=== PATIENT | female | born 1945 | race Caucasian/White ===

== ENCOUNTER 2016-09-10 06:52 | Day surgery (SDC) | payer MEDICARE, OTHER ==
[~2016-09-10] VITALS: Ht 167.6 cm; Wt 114.9 kg
[~2016-09-10 06:52] MED LIST: ACET-2930 PO; ACET-732 PO; ATEN-39 PO; CALC-969 PO; ESCI20TA30 PO; IBUP-14 PO; OMEP20TA11 PO
--- OUTSIDE RECORDS SUMMARY | 2016-09-10 06:56 | XMS REPORT | Referral Summary ---
Author Author [facility] Organization [facility] Address Unknown Phone Unavailable Care Team Providers Care Brush Material Preparer Name Role Phone Malorie Mcghee Primary Care Physician [phone] Encounter Date(s): 01/15/15 - 01/15/15 [facility] [address], [address] [place], [place] [address] Discharge Diagnosis: Obstructive sleep apnea, adult Discharge Disposition: 01-Home or Self Care Attending Physician: Shaheen Guzman MD Admitting Physician: Shaheen Guzman MD Vital Signs No data available for this section Problem List Condition Effective Dates Status Health Status Informant Morbid Active patient obesity(Confirmed) Obstructive sleep Active apnea, adult(Confirmed) Allergies, Adverse Reactions, Alerts Substance Reaction Severity Status No Known Allergies Active Medications Advil 2 mg, Oral, Daily, 0 Refill(s) Start Date: 01/09/15 Status: Ordered atenolol 50 mg oral tablet 50 mg 1 tabs, Oral, Daily, # 30 tabs, 0 Refill(s) Start Date: 01/09/15 Status: Ordered Calcium 600+D Oral, 0 Refill(s) Start Date: 01/09/15 Status: Ordered Excedrin PM 2 tabs, Oral, Bedtime (once a day), 0 Refill(s) Start Date: 01/09/15 Status: Ordered Lexapro Oral, Daily, 0 Refill(s) Start Date: 04/03/15 Status: Ordered Miscellaneous DME DME Item Tri Flex supplement, See Instructions, # 1 Each, 0 Refill(s), Supply Start Date: 01/09/15 Status: Ordered omeprazole 40 mg oral delayed release capsule See Instructions, TAKE ONE CAPSULE BY MOUTH TWICE A DAY BEFORE MEALS, # 60 caps , 11 Refill(s), eRx: [facility] #[id number], TAKE ONE CAPSULE BY MOUTH TWICE A DAY BEFORE MEALS Start Date: 03/25/14 Status: Ordered Results No data available for this section Immunizations No data available for this section Procedures No data available for this section Social History Social History Type Response Smoking Status Never smoker Assessment and Plan No data available for this section
--- OUTSIDE RECORDS SUMMARY | 2016-09-10 06:56 | XMS REPORT | Referral Summary ---
Author Author [facility] [place] Organization [facility] [place] Address Unknown Phone Unavailable Care Team Providers Care Manager Drug Name Role Phone Malorie Mcghee Primary Care Physician [phone] Encounter VC Date(s): 03/03/16 - 03/03/16 [facility] [place] [address] [place] [address]- Discharge Diagnosis: Obstructive sleep apnea, adult Discharge Disposition: 01-Home or Self Care Attending Physician: Shelli Liu Admitting Physician: Shelli Liu Vital Signs Most recent to 1 oldest [Reference Range]: Peripheral Pulse 67 bpm Rate [60-100 bpm] (03/03/16 10:49 AM) Blood Pressure 124/90 mmHg [90-140/60-90 mmHg] (03/03/16 10:49 AM) SpO2 96 % (03/03/16 10:49 AM) Problem List Condition Effective Dates Status Health [...] DAY BEFORE MEALS, # 60 caps , eRx: [facility] #[id number], TAKE ONE CAPSULE BY MOUTH TWICE A DAY BEFORE MEALS Start Date: 10/03/15 Status: Ordered Results No data available for this section Immunizations No data available for this section Procedures Procedure Date Related Diagnosis Body Site Colonoscopy1 09/06/13 Esophagogastroduodenoscopy2 09/06/13 Esophagogastroduodenoscopy3 08/13/10 Esophagogastroduodenoscopy4 08/11/09 Esophagogastroduodenoscopy5 11/16/07 1No adenomatous colon polyps, due to Hx of adenomatous polyps in past repeat c- scope in 5 years 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 Will change range to 5-14cm. RT to work with mask fit. Will turn EPR on to 3 fulltime and decrease RAMP time per her request. ORder to [facility] in [place] since she lives in [place]. Continue CPAP with all sleep at 5-14cm. -CPAP download reviewed with the patient and patient is complying with and benefitting from treatment. -Avoid driving , partaking in hazardous activities, or operating heavy machinery if drowsy. -Continue appropriate cleaning of the machine/humidifier and update of all supplies including mask , tubing , and filters . -Return for follow-up in 1 year since she lives out of town and is controlled on download, unless trouble with pressure and then call sooner . Return/call sooner if any problems arise in the meantime.
--- OUTSIDE RECORDS SUMMARY | 2016-09-10 06:56 | XMS REPORT | Referral Summary ---
Author Author [facility] Organization [facility] Address Unknown Phone Unavailable Care Team Providers Care Siding Coreboard Inspector Name Role Phone Malorie Mcghee Primary Care Physician [phone] Encounter VC Date(s): 04/03/15 - 04/03/15 [facility] [address], [facility] [address] [place], [place] [address] Discharge Diagnosis: Obstructive sleep apnea, adult Discharge Disposition: 01-Home or Self Care Attending Physician: Shaheen Guzman MD Admitting Physician: Shaheen Guzman MD Referring Physician: Temi Mcghee MD Vital Signs Most recent to 1 oldest [Reference Range]: Peripheral Pulse 81 bpm Rate [60-100 bpm] (04/03/15 10:55 AM) Blood Pressure 118/86 mmHg [90-140/60-90 mmHg] (04/03/15 10:55 AM) SpO2 93 % (04/03/15 10:55 AM) Problem List Condition Effective Dates Status [...] # 60 caps , 11 Refill(s), eRx: [facility] #[id number], TAKE ONE CAPSULE BY MOUTH TWICE A DAY BEFORE MEALS Start Date: 03/25/14 Status: Ordered Results No data available for this section Immunizations No data available for this section Procedures No data available for this section Social History Social History Type Response Smoking Status Never smoker Assessment and Plan Extracted from: Title: Office Visit Note Author: Shaheen Guzman MD Date: 04/03/15 Assessment/Plan Obstructive sleep apnea, adult Assessment: Obstructive sleep apnea syndrome. The patient is complying with treatment and benefiting. No changes in pressure or mask are needed. She has some fluid retentionin the loose soft tissues around the eyes, which could be worsened bycompression from the straps on the mask. Plan: We reviewed her compliance download. She was given a copy. She will continue at the same pressure range. I talked about pathophysiology of puffy eyes. I suggested putting her bed in slight reverse Trendelenburg to see if that willhelp. Annual returns at this point, sooner if problems. Referrals to Other Providers Referred by: Shaheen Guzman MD
--- OUTSIDE RECORDS SUMMARY | 2016-09-10 06:56 | XMS REPORT | Referral Summary ---
Author Author [facility] Organization [facility] Address Unknown Phone Unavailable Care Team Providers Care Rigging Loft Repairer Name Role Phone Malorie Mcghee Primary Care Physician [phone] Encounter VC Date(s): 01/09/15 - 01/09/15 [facility] [address], [facility] [address] [place], [place] [address] Discharge Diagnosis: Obstructive sleep apnea, adult Discharge Disposition: 01-Home or Self Care Attending Physician: Shaheen Guzman MD Admitting Physician: Shaheen Guzman MD Referring Physician: Temi Mcghee MD Vital Signs Most recent to 1 oldest [Reference Range]: Peripheral Pulse 68 bpm Rate [60-100 bpm] (01/09/15 2:40 PM) Blood Pressure 124/80 mmHg [90-140/60-90 mmHg] (01/09/15 2:40 PM) SpO2 96 % (01/09/15 2:40 PM) Problem List Condition Effective Dates Status Health [...] # 60 caps , 11 Refill(s), eRx: [facility] #[id number], TAKE ONE CAPSULE BY MOUTH TWICE A DAY BEFORE MEALS Start Date: 03/25/14 Status: Ordered Results No data available for this section Immunizations No data available for this section Procedures No data available for this section Social History Social History Type Response Smoking Status Never smoker Assessment and Plan Extracted from: Title: Office Visit Note Author: Shaheen Guzman MD Date: 01/09/15 Assessment/Plan Obstructive sleep apnea, adult Impression: Evaluation for sleep apnea with a sleep study is recommended. Indications/risk factors include loud snoring, nonrestorative sleep with daytime tiredness, hypertension, age over 50, body mass index over 35. Sleep maintenance insomnia has recently been associated with sleep apnea. Plan: Discussion with the patient about the pathophysiology of sleep apnea, the nature of overnight sleep studies, and about CPAP treatment. After discussion, polysomnography is scheduled, with a split-night study if indicated. The patient will return after the study to review the results, and further recommendations to Dr Janny Mcghee will follow at that point. Referrals to Other Providers Referred by: Shaheen Guzman MD
--- OUTSIDE RECORDS SUMMARY | 2016-09-10 06:56 | XMS REPORT ---
Author Author [facility]. Organization [facility] Address [address] [place] [address] Phone [phone] Summary purpose CCDA Sent to [facility] Chief Complaint and Reason for Visit Admit Diagnosis 1 HYPERTENSION NOS Problem list No authorized problems tracked for continuity of care are available for this visit. Encounters No authorized problems tracked for encounter diagnoses are available for this visit. Medications No home medications recorded for this patient visit Allergies, adverse reactions, alerts No allergy information is available for this patient. Immunizations No immunizations recorded for this patient visit Relevant diagnostic tests and/or laboratory data RESULTS CBC :00:00 Result Normal Range Units WBC 6.48 4.8-10.8 x103/mm3 Neutrophil % L 48.8 50-70 % Lymph % 40.6 20-50 % Miner % 8.2 1.0-9.0 % Eosinophil % 1.9 0-4 % Basophil % 0.5 0-2 % Neutrophil # 3.17 3.0-7.0 x103/mm3 Lymph # 2.63 1.0-4.0 x103/mm3 Miner # 0.53 0.0-0.8 x103/mm3 Eosinophil # 0.12 0-0.5 x103/mm3 Basophil # 0.03 0-0.2 x103/mm3 RBC 4.86 4.20-5.40 x103/mm3 HGB 15.0 12.0-16.0 g/dl HCT 44.3 37.0-47.0 % MCV 91.2 81-99 FL MCH 30.9 27.0-31.0 pg MCHC 33.9 32.0-36.0 g/dl RDW 12.9 12-15 % Platelet 251 150-400 x103/mm3 MPV 9.4 6.0-10.0 FL Chemistry Group :00:00 Result Normal Range Units Sodium 141 134-145 mmol/L Potassium 4.8 3.6-5.0 mmol/L Chloride H 109 98-107 mmol/L CO2 22 22-30 mmol/L Glucose 105 75-110 mg/dl BUN 18 9-20 mg/dl Creatinine L .6 0.8-1.7 mg/dl Calcium 9.5 8.4-10.2 mg/dl Cholesterol H 192 130-170 mg/dl Triglyceride 146 < 200 mg/dl HDL 52 40-60 mg/dl LDL Logan H 110 30-100 mg/dl VLDL 29 0 Chol/HDL 3.68 0.00-5.00 Ratio Special Chemistry Group [id number]:00:00 Result Normal Range Units TSH 2.76 0.50-6.00 uIU/mL History of procedures Procedure Code Code Type Description Date Performed Performing Physician 94972 CPT-4 METABOLIC PANEL TOTAL CA 12-10-2014 SHIVANI VILLASEÑOR 70433 CPT-4 LIPID PANEL 12-10-2014 SHIVANI VILLASEÑOR 26184 CPT-4 COMPLETE CBC AUTOMATED 12-10-2014 SHIVANI VILLASEÑOR 25353 CPT-4 ASSAY THYROID STIM HORMONE 12-10-2014 SHIVANI VILLASEÑOR Functional status No functional or cognitive status observations are available for this visit. Vital signs No authorized vital signs are available for this visit. Social history No Social History or smoking status observations were recorded for this visit. ( Unknown if ever smoked.) Treatment Plan No treatment plan text is available for this visit. Hospital discharge instructions No discharge instruction text is available for this visit.
--- OUTSIDE RECORDS SUMMARY | 2016-09-10 06:56 | XMS REPORT | Continuity of Care Document ---
Author Author [facility]. 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 07/08/2011 D V07.4 PMHRT 03/08/2013 SHIVANI VILLASEÑOR MD 272.0 PURE HYPERCHOLESTEROLEM 03/08/2013 SHIVANI VILLASEÑOR MD 285.9 ANEMIA NOS 03/08/2013 SHIVANI VILLASEÑOR MD 401.9 HYPERTENSION NOS 12/10/2014 SHIVANI VILLASEÑOR MD 401.9 HYPERTENSION NOS Procedures Code [place] [address] COMPREHEN METABOLIC PANEL SHIVANI VILLASEÑOR MD 07/08/2011 43990 LIPID PANEL SHIVANI VILLASEÑOR MD 07/08/2011 11938 ASSAY OF VITAMIN D SHIVANI VILLASEÑOR MD 07/08/2011 66880 ASSAY THYROID STIM HORMONE SHIVANI VILLASEÑOR MD 07/08/2011 66020 COMPLETE CBC, AUTOMATED SHIVANI VILLASEÑOR MD 07/08/2011 01287 ROUTINE VENIPUNCTURE SHIVANI VILLASEÑOR MD 03/08/2013 88500 COMPREHEN METABOLIC PANEL SHIVANI VILLASEÑOR MD 03/08/2013 01355 LIPID PANEL SHIVANI VILLASEÑOR MD 03/08/2013 74609 ASSAY THYROID STIM HORMONE SHIVANI VILLASEÑOR MD 03/08/2013 07439 COMPLETE CBC, AUTOMATED SHIVANI VILLASEÑOR MD 03/08/2013 73080 METABOLIC PANEL TOTAL CA SHIVANI VILLASEÑOR MD 12/10/2014 92390 LIPID PANEL SHIVANI VILLASEÑOR MD 12/10/2014 13227 ASSAY THYROID STIM HORMONE SHIVANI VILLASEÑOR MD 12/10/2014 60766 COMPLETE CBC, AUTOMATED SHIVANI VILLASEÑOR MD 12/10/2014 Results Test Result Range CBC - 12/10/14 08:15 Eos # 0.12 x10^3 0-0.5 Eos % 1.9 % 0-4 HCT 44.3 % 37.0-47.0 HGB 15.0 G/DL 12.0-16.0 Lymph # 2.63 x10^3 1.0-4.0 Lymph % 40.6 % 20-50 MCH 30.9 PG 27.0-31.0 MCHC 33.9 G/DL 32.0-36.0 MCV 91.2 FL 81-99 Howell # 0.53 x10^3 0.0-0.8 Howell % 8.2 % 1.0-9.0 MPV 9.4 FL 6.0-10.0 Platelet 251 x10^3 150-400 RBC 4.86 x10^3 4.20-5.40 RDW 12.9 % 12-15 WBC 6.48 x10^3 4.8-10.8 Baso # 0.03 x10^3 0-0.2 Baso % 0.5 % 0-2 Neut % 48.8 % 50-70 Neut # 3.17 x10^3 3.0-7.0 TSH - 12/10/14 10:24 TSH 2.76 UIUML 0.50-6.00 Basic Metabolic Panel - 12/10/14 10:49 Sodium 141 MMOLL 134-145 Potassium 4.8 MMOLL 3.6-5.0 Chloride 109 MMOLL 98-107 CO2 22 MMOLL 22-30 Glucose 105 MG/DL 75-110 BUN 18 MG/DL 9-20 Creatinine .6 MG/DL 0.8-1.7 Calcium 9.5 MG/DL 8.4-10.2 Lipid Profile - 12/10/14 10:49 HDL 52 MG/DL 40-60 LDL Calculated 110 MG/DL 30-100 Triglyceride 146 MG/DL < 200 VLDL 29 Chol/HDL 3.68 RATIO 0.00-5.00 Cholesterol 192 MG/DL 130-170 Encounters ACCT No. Visit Date/Time Discharge Status Pt. Type Provider Facility Loc./Unit Complaint [id number] 12/10/2014 08:04:00 12/10/2014 08:04:00 DIS Outpatient CHARLEEN CHAVEZ, [facility] [id number] 03/08/2013 09:31:00 03/08/2013 09:31:00 DIS Outpatient CHARLEEN CHAVEZ, [facility] YANA [id number] 07/08/2011 08:44:00 Document Registration
--- OUTSIDE RECORDS SUMMARY | 2016-09-10 06:56 | XMS REPORT | Referral Summary ---
Author Author [facility] Organization [facility] Address Unknown Phone Unavailable Care Team Providers Care Ski Edge Painter Name Role Phone Malorie Mcghee Primary Care Physician [phone] Encounter VC Date(s): 01/31/15 - 01/31/15 [facility] [address], [facility] [address] [place], [place] [address] Discharge Diagnosis: Obstructive sleep apnea, adult Discharge Disposition: 01-Home or Self Care Attending Physician: Shaheen Guzman MD Admitting Physician: Shaheen Guzman MD Referring Physician: Temi Mcghee MD Vital Signs Most recent to 1 oldest [Reference Range]: Peripheral Pulse 70 bpm Rate [60-100 bpm] (01/31/15 11:15 AM) Blood Pressure 102/72 mmHg [90-140/60-90 mmHg] (01/31/15 11:15 AM) SpO2 97 % (01/31/15 11:15 AM) Problem List Condition Effective Dates Status [...] # 60 caps , 11 Refill(s), eRx: [facility] #[id number], TAKE ONE CAPSULE BY MOUTH TWICE A DAY BEFORE MEALS Start Date: 03/25/14 Status: Ordered Results No data available for this section Immunizations No data available for this section Procedures No data available for this section Social History Social History Type Response Smoking Status Never smoker Assessment and Plan Extracted from: Title: Ambulatory Patient Education Author: Shaheen Guzman MD Date: Family Medicine CPAP and BIPAP Information CPAP and BIPAP are methods of helping you breathe with the use of air pressure. CPAP stands for "continuous positive airway pressure." BIPAP stands for "bi- level positive airway pressure." In both methods, air is blown into your air passages to help keep you breathing well. With CPAP, the amount of pressure stays the same while you breathe in and out. CPAP is most commonly used for obstructive sleep apnea. For obstructive sleep apnea, CPAP works by holding your airways open so that they do not collapse when your muscles relax during sleep. BIPAP is similar to CPAP except the amount of pressure is increased when you inhale. This helps you take larger breaths. Your health care provider will recommend whether CPAP or BIPAP would be more helpful for you. WHY ARE CPAP AND BIPAP TREATMENTS USED? CPAP or BIPAP can be helpful if you have: Sleep apnea. Chronic obstructive pulmonary disease (COPD). Diseases that weaken the muscles of the chest, including muscular dystrophy or neurological diseases such as amyotrophic lateral sclerosis (ALS). Other problems that cause breathing to be weak, abnormal, or difficult. HOW IS CPAP OR BIPAP ADMINISTERED? Both CPAP and BIPAP are provided by a small machine with a flexible plastic tube that attaches to a plastic mask. The mask fits on your face, and air is blown into your air passages through your nose or mouth. The amount of pressure that is used to blow the air into your air passages can be set on the machine. Your health care provider will determine the pressure setting that should be used based on your individual needs. WHEN SHOULD CPAP OR BIPAP BE USED? In most cases, the mask is worn only when sleeping. Generally, you will need to wear the mask throughout the night and during the daytime if you take a nap. In a few cases involving certain medical conditions, people also need to wear the mask at other times when they are awake. Follow your health care provider's instructions for when to use the machine. USING THE MASK Because the mask needs to be snug, some people feel a trapped or closed-in feeling (claustrophobic) when first using the mask. You may need to get used to the mask gradually. To do this, you can first hold the mask loosely over your nose or mouth. Gradually apply the mask more snugly. You can also gradually increase the amount of time that you use the mask. Masks are available in various types and sizes. Some fit over your mouth and nose, and some fit over just your nose. If your mask does not fit well, talk to your health care provider about getting a different one. If you are using a nasal mask and you tend to breathe through your mouth, a chin strap may be applied to help keep your mouth closed. The CPAP and BIPAP machines have alarms that may sound if the mask comes off or develops a leak. If you have trouble with the mask, it is very important that you talk to your health care provider about finding a way to make the mask easier to tolerate. Do not stop using the mask. This could have a negative impact on your health. TIPS FOR USING THE MACHINE Place your CPAP or BIPAP machine on a secure table or stand near an electrical outlet. Know where the on-off switch is located on the machine. Follow your health care provider's instructions for how to set the pressure on your machine and when you should use it. Do not eat or drink while the CPAP or BIPAP machine is on. Food or fluids could get pushed into your lungs by the pressure of the CPAP or BIPAP. Do not smoke. Tobacco smoke residue can damage the machine. For home use, CPAP and BIPAP machines can be rented or purchased through home health care companies. Many different brands of machines are available. Renting a machine before purchasing may help you find out which particular machine works well for you. SEEK IMMEDIATE MEDICAL CARE IF: You have redness or open areas around your nose or mouth where the mask fits. You have trouble operating the CPAP or BIPAP machine. You cannot tolerate wearing the CPAP or BIPAP mask. Document Released: 02/04/2005 Document Revised: 01/09/2014 Document Reviewed: Exit[employer] Patient Information 2015 [employer]. This information is not intended to replace advice given to you by your health care provider. Make sure you discuss any questions you have with your health care provider. No follow up information was provided. Extracted from: Title: Office Visit Note Author: Shaheen Guzman MD Date: 01/31/15 Assessment/Plan Assessment: Obstructive sleep apnea syndrome. By apnea- hypopnea index, this is mild, but the patient has significant fragmentation of her sleep and more severe events during REM sleep. A trial of CPAP would be appropriate. Plan: We reviewed the study in detail. The patient was given a summary page and an example page. After discussion of the options, she is started on an auto titrating CPAP unit set at 5-12 cm. We will see her back after she has had the machine for several weeks. Referrals to Other Providers Referred by: Shaheen Guzman MD
--- OUTSIDE RECORDS SUMMARY | 2016-09-10 06:56 | XMS REPORT | Referral Summary ---
Author Author [facility] [employer] Organization [facility] [place] Address Unknown Phone Unavailable Care Team Providers Care Manager Systems Name Role Phone Malorie Mcghee Primary Care Physician [phone] Encounter VC Date(s): 03/03/16 - 03/03/16 [facility] [place] [address] [place] [address]- us Discharge Disposition: 01-Home or Self Care Attending Physician: Shelli Liu Vital Signs No data available for this [...] BEFORE MEALS, # 60 caps , eRx: [facility] #[id number], TAKE ONE CAPSULE BY MOUTH TWICE A [...]
[2016-09-10] MEDS ORDERED: LR 1,000 ML IV SCH (07:00)
[2016-09-10] MEDS ORDERED: LIDOCAINE 1% (10mg/ml) 2ml SDV INJ ONE (07:00)
[2016-09-10 07:06] VITALS: BP 139/83; PULSE 55; RESP 14; TEMP 97.8; O2SAT 96; Ht 167.6 cm; Wt 114.9 kg
--- NOTE | 2016-09-10 07:28 | ANESPREOP ---
Anesthesia Record Date and Time DATE: 09/10/16 TIME: 07:26 Pre-Op Diagnosis barretts Proposed Surgical Procedure COLONOSCOPY Allergies: Coded Allergies: No Known Drug Allergies (Verified Allergy, Mild, 11/15/07) Ht/Wt/BMI Height: 5 ' 6.00 " Weight: 114.900 kg BMI: 40.9 kg/m2 Vital Signs Date Time Temp Pulse Resp B/P Pulse Ox O2 Delivery O2 Flow Rate FiO2 09/10/16 07:06 97.8 55 14 139/83 96 Room Air Medications Inpatient Medications Current Medications Medications (Trade) Dose Ordered Sig/Jacey Start Time Stop Time Status Last Admin Dose Admin Lactated Ringer's (Lactated Ringers) 1,000 ml @ 30 mls/hr Q24H 09/10/16 07:00 Acetaminophen (Tylenol) 500 Mg Tablet, 1 TAB PO PRN, (Reported) Acetaminophen/Diphenhydramine (Tylenol Pm Ex-Strength Caplet) 1 Each Tablet, 2 TAB PO HS, (Reported) Atenolol (Atenolol) 50 Mg Tablet, 50 MG PO HS, (Reported) Calcium Carbonate/Vitamin D3 (Calcium 500 + D Tablet) 1 Each Tablet, 1 TAB PO DAILY, (Reported) Escitalopram Oxalate (Escitalopram Oxalate) 20 Mg Tablet, 1 TAB PO DAILY, ( Reported) Ibuprofen (Advil) 200 Mg Tablet, 400 MG PO Q4-6H PRN, (Reported) Omeprazole Magnesium (Prilosec Otc) 20 Mg Tablet.dr, 40 MG PO DAILY, (Reported) Currently on Beta Bora: No Medical/Surgical History Anesthesia PMH: Reports: *Hypertension (PER H&P), Arthritis (KNEES), Obesity, Reflux (PER H&P), Sleep Apnea (PER H&P), Denies: *Angina, *Diabetes, *Dyspnea, * VA, Anesthesia Reactions, Asthma, Blood Transfusion Reac, CHF, COPD, CVA/Stroke/ TIA, Cancer, Clotting Problems, Deep Vein Thrombosis, Glaucoma, Hepatitis, Hiatal Hernia, Malignant Hyperthermia, Pneumonia, Renal Disease, Rheumatic Fever , Seizures, Thyroid Disease, Tuberculosis Smoking Status: Never smoker Has pt. smoked today?: No Use Chewing Tobacco?: No Second Hand Exposure: No Substance Use Type: does not use Substance last used: unknown Alcohol Intake: none Last Drink: unknown Past Surgical History Orthopedic Surgeries: Yes - ALON KNEE SCOPE; ORIF RT LEG Abdominal Surgeries: Yes - APPY; LAP MICHAEL Genitourinary Surgeries: Yes - CYSTO/BT Cardiac Surgeries: No Endocrine Surgeries: No Reproductive Surgeries: Yes - STEFANO/BSO Neurological Surgeries: No Ear Surgeries: No Nose Surgeries: No Throat Surgeries: Yes - EGD'S Other Surgeries: Yes Anesthesia Adverse Reactions: FOUND none Family Hx of Anesthesia Advers: none Hx of Motion Sickness: No Pertinent Findings EKG Rhythm: Sinus Tachycardia Physical Exam Respiratory: Bilat breath sounds equal, Lungs clear Cardiovascular: FOUND Irregularly irregular, FOUND No murmur Airway Assessment Mallampati Score: II TMD: 3 Fingerbreadths Neck Extension: Fair Overall Assessment: No Airway Concerns ASA: 2 Plan Anesthesia Plan: TIVA Discussion Discussed risks/options/alternatives of anesthesia and questions answered. Patient consents. Nursing pain assessment noted. Attestation Statement Prior to the delivery of any anesthetic medication, I examined the patient, developed the plan, obtained the patient's consent and discussed the risk and benefits of the procedure with the patient/guardian. VINICIUS BLEVINS CRNA Sep 10, 2016 07:28
[2016-09-10] MEDS ORDERED: GLUC-236 (07:35)
[2016-09-10] MEDS ORDERED: GLUC100015 (07:35)
[2016-09-10] MEDS ORDERED: PROPOFOL 200mg 20 ML IV ONE (08:37)
[2016-09-10] MEDS ORDERED: LIDOCAINE 1% (10mg/ml) 2ml SDV ONE (08:37)
[2016-09-10] MEDS ORDERED: LIDOCAINE VISCOUS 2% Oral Soln 15ml UD ONE (08:56)
[2016-09-10 09:11] VITALS: BP 107/59; PULSE 57; RESP 20; TEMP 97.5; O2SAT 95
[2016-09-10 09:25] VITALS: BP 117/67; PULSE 58; RESP 22; O2SAT 98
[2016-09-10 09:40] VITALS: BP 128/73; PULSE 56; RESP 25; O2SAT 96
[2016-09-10 09:55] VITALS: BP 116/71; PULSE 57; RESP 22; O2SAT 99
--- NOTE | 2016-09-10 09:59 | ANESPO ---
Post-Op Note Date 09/10/16 Time: 09:58 Status Pt Participated in Evaluation: Pt participated in person Vital Signs Date Time Temp Pulse Resp B/P Pulse Ox O2 Delivery O2 Flow Rate FiO2 09/10/16 09:11 97.5 57 20 107/59 95 Room Air Respiratory Function: Airway patent, Regular respirations Cardiovascular Function: Regular pulse Mental Status: Alert/oriented Pain Level Intensity: 0 Unable to Assess Pain Due To: Medicated/Sleeping Hydration: Taking po fluids Complications during Recovery None apparent Post-Anesthesia Notes pt. lina. well Follow-Up Instructions Instructions Per Surgeon Additional Information none VINICIUS BLEVINS CRNA Sep 10, 2016 09:59
[2016-09-10 10:10] VITALS: BP 133/60; PULSE 55; RESP 24; O2SAT 99
--- NOTE | 2016-09-10 11:33 | OPNOTEF ---
DATE OF SERVICE 09/10/2016 SURGEON Jose Rafael Mendez MD PREOPERATIVE DIAGNOSIS Personal history for Kilpatrick's metaplasia. POSTOPERATIVE DIAGNOSIS Personal history for Kilpatrick's metaplasia, hiatal hernia, ongoing endoscopic evidence consistent with Kilpatrick's metaplasia. PROCEDURE Esophagogastroduodenoscopy with circumferential biopsies from distal esophagus via cold biopsy technique. ANESTHESIA TIVA BRIEF HISTORY/INDICATIONS Mrs. Watters is a 71-year-old female who is well known to my surgical practice. Mrs. Watters does have a longstanding history for Kilpatrick's metaplasia/gastroesophageal reflux disease. Her gastroesophageal reflux disease is fairly well controlled with medical management. Patient presents today to undergo followup EGD as a result of her prior history for Kilpatrick's metaplasia. For completeness please refer to notes included in the patient's chart. FINDINGS Upon upper endoscopy, esophagus, stomach and duodenum were found to be essentially within normal limits with the exception of the distal esophagus. The patient was found have about a 4-5 cm hiatal hernia. She was found have ongoing irregularity of the squamocolumnar junction indicative of Kilpatrick's metaplasia. Photos were obtained for documentation purposes. Multiple circumferential biopsies were also obtained from the distal esophagus via cold biopsy technique. DESCRIPTION OF PROCEDURE After informed consent was obtained, the patient was brought to the endoscopy suite and placed on the table in left lateral decubitus position. The patient subsequently underwent total intravenous anesthesia by the nurse radio intelligence operator per my request. A formal time-out was then completed. Next, an Olympus gastroscope was inserted into the oral hypopharynx and subsequently into the esophagus under direct visualization. The gastroscope was then advanced through the esophagus, stomach, pylorus, duodenal bulb, into the second portion of the duodenum. The scope was slowly withdrawn. First and second portions of the duodenum were within normal limits. No evidence for duodenitis or ulcerations were noted. The scope was then drawn back into the prepyloric region and antrum. Again no marked mucosal abnormalities were noted. A J-maneuver was then performed. Cardia and fundus were well visualized. Patient was found to have a small hiatal hernia. Scope was allowed to straighten and slowly withdrawn. The remaining corpus of the stomach was well visualized and again without noted abnormalities. Scope was withdrawn back to the level of the diaphragm. Squamocolumnar junction was located about 5 cm above the level of the diaphragm, i.e., the patient had about a 4-5 cm hiatal hernia. Squamocolumnar junction was irregular and there was progression of the columnar mucosa upon the squamous epithelium to a length of about 1 cm at various locations. Endoscopically there was no evidence for significant esophagitis. The mucosa was not edematous, erythematous, nor was there any evidence for ulcerations. Next, multiple circumferential biopsies were obtained from the JOSE junction via cold biopsy technique at various lengths. Scope was then slowly withdrawn. The remaining esophageal mucosa was found to be within normal limits. Patient tolerated the procedure without difficulty and was sent back to the preop area in stable condition. We will await the biopsy results from today's esophagogastroduodenoscopy and will proceed accordingly with further recommendations thereafter. YARA
== END 2016-09-10 10:23 | disposition home or self-care (01) ==
LOC: SCU 06:52
PROVIDERS: ATTEND Surgery
DX: Z87.19 Personal history of other diseases of the digestive system (principal); K21.0 Gastro-esophageal reflux disease with esophagitis; K44.9 Diaphragmatic hernia without obstruction or gangrene
CPT/HCPCS: 43239; J2704; J7120; 88305

== ENCOUNTER → 2016-10-19 | Outpatient (CLI) | payer MEDICARE, OTHER ==
[~2016-10-19] MED LIST changes: +GLUC-236
== END ==
LOC: WC.BC 10:49
DX: Z12.31 Encounter for screening mammogram for malignant neoplasm of breast (principal)
CPT/HCPCS: 77063; G0202